=== PATIENT | male | born 1990 | race Hispanic/Latino ===

== ENCOUNTER 2018-02-19 16:39 | Emergency (ER) | payer OTHER ==
[2018-02-19] MEDS ORDERED: IBUPROFEN 600 MG TABLET ONE (17:09)
== END 2018-02-19 17:40 | disposition home or self-care (01) ==
LOC: EDH 16:39
DX: S93.492A Sprain of other ligament of left ankle, initial encounter (principal); X50.0XXA Overexertion from strenuous movement or load, initial encounter; Y93.89 Activity, other specified; Y92.89 Other specified places as the place of occurrence of the external cause; Y99.8 Other external cause status
CPT/HCPCS: 73610; 73630